=== PATIENT | female | born 1965 | race Caucasian/White ===

== ENCOUNTER → 2016-12-17 16:51 | Outpatient (CLI) | payer BC ==
[2015-07-29 15:50] VITALS: BMI 24.9
[~2016-12-17 16:51] MED LIST: MACROBID100 MG PO
== END | disposition home or self-care (01) ==
LOC: D.MAMMO 14:00
DX: R92.8 Other abnormal and inconclusive findings on diagnostic imaging of breast (principal)

== ENCOUNTER 2018-09-28 07:54 | Outpatient (CLI) | payer BC ==
[2015-07-29 15:50] VITALS: BMI 24.9
== END 2018-09-28 23:59 | disposition home or self-care (01) ==
LOC: D.MAMMO 07:54
DX: R92.8 Other abnormal and inconclusive findings on diagnostic imaging of breast (principal)

== ENCOUNTER 2021-04-16 15:45 | Outpatient (CLI) | payer BC ==
[2015-07-29 15:50] VITALS: BMI 24.9
== END 2021-04-16 23:59 | disposition home or self-care (01) ==
LOC: D.MAMMO 15:45
PROVIDERS: ATTEND Obstetrics & Gynecology
DX: Z12.31 Encounter for screening mammogram for malignant neoplasm of breast (principal)